=== PATIENT | male | born 1975 | race African-American/Black ===

== ENCOUNTER 2018-02-22 08:28 | Emergency (ER) | payer SELFPAY ==
[~2018-02-22] VITALS: Ht 177.8 cm; Wt 85.0 kg
[2018-02-22] MEDS ORDERED: HYDROCODONE/ACETAMINOPHEN 5/325MG TABLET PO ONE (09:15)
[2018-02-22 11:19] VITALS: BP 107/65
== END 2018-02-22 11:23 | disposition home or self-care (01) ==
LOC: ER 08:38
DX: M10.9 Gout, unspecified (principal); M79.675 Pain in left toe(s); Z79.82 Long term (current) use of aspirin
CPT/HCPCS: 99283